=== PATIENT | male | born 1995 | race Caucasian/White ===

== ENCOUNTER → 2020-09-01 | Emergency (ER) | payer MEDICAID ==
[~2020-09-01] VITALS: Ht 172.7 cm; Wt 68.2 kg
[~2020-09-01] MED LIST: LIDOCAINE 1% 10 ML VIAL ID ONE; POVIDONE-IODINE 10% 15 ML SOLUTION UD TP ONE
[2020-09-01 21:59] VITALS: BP 134/79
== END | disposition home or self-care (01) ==
LOC: EMS 19:21
DX: S90.852A Superficial foreign body, left foot, initial encounter (principal); W45.8XXA Other foreign body or object entering through skin, initial encounter; Y93.89 Activity, other specified; Y92.89 Other specified places as the place of occurrence of the external cause; Y99.8 Other external cause status
CPT/HCPCS: 10120; 99285; J3490